=== PATIENT | female | born 1955 | race Caucasian/White ===

== ENCOUNTER 2017-07-19 04:01 | Emergency (ER) | payer SELFPAY ==
[2017-07-19] MEDS ORDERED: ASPIRIN 81 MG TABLET, CHEWABLE PO ONE (04:20)
[2017-07-19] MEDS ORDERED: MAG HYDROX/AL HYDROX/SIMETH SUSP 30 ML UDCUP PO ONE (04:39)
[2017-07-19] MEDS ORDERED: LIDOCAINE 2% VISCOUS SOLN 20 ML UDCUP PO ONE (04:39)
[2017-07-19] MEDS ORDERED: METOCLOPRAMIDE HCL ORAL SOLN 10 MG/10 ML UDCUP PO ONE (04:39)
--- NOTE | 2017-07-19 04:39 | ER Document Report ---
ED Medical Screen (RME) - General Chief Complaint: Chest Pain Stated Complaint: CHEST PAIN Time Seen by Provider: 07/19/17 04:35 - HPI Notes: 07/19/17 04:36 Patient coming in for evaluation of chest pain woke her up around 230 this morning states similar to GERD in the past pain in center of the chest denies fevers chills nausea vomiting diarrhea. Patient states now just has a funny feeling in her chest. EKG was reviewed by myself no acute changes patient's physical exam showed normal heart rate normal lung sounds. Patient looks to be no obvious distress upon discussed quick review. - Related Data Allergies/Adverse Reactions: No Known Allergies Allergy (Verified 02/02/12 09:07) Past Medical History Past Surgical History: Reports: Hx Hysterectomy - Immunizations Hx Diphtheria, Pertussis, Tetanus Vaccination: Yes Review of Systems - Review of Systems Cardiovascular: Chest pain Physical Exam - Vital signs Vitals: Temp Pulse Resp BP Pulse Ox 98.2 F 66 18 157/60 H 98 07/19/17 04:12 07/19/17 04:12 07/19/17 04:12 07/19/17 04:12 07/19/17 04:12 - Cardiovascular Rhythm: Regular Heart sounds: Normal auscultation Course - Re-evaluation Re-evalutation: 07/19/17 04:39 We will give GI cocktail. - Vital Signs Vital signs: Temp Pulse Resp BP Pulse Ox 98.2 F 66 18 157/60 H 98 07/19/17 04:12 07/19/17 04:12 07/19/17 04:12 07/19/17 04:12 07/19/17 04:12
[2017-07-19 04:59] LABS: ABSOLUTE BASOPHILS # (AUTO) 0.1 10^3/uL (0.0-0.2); ABSOLUTE EOSINOPHILS # (AUTO) 0.4 10^3/uL (0.0-0.6); ABSOLUTE MONOCYTES (AUTO) 0.9 10^3/uL (0.1-1.4); BASOPHILS % (AUTO) 0.6 % (0-2); EOSINOPHILS % (AUTO) 4.6 % (0-6); HEMATOCRIT 40.8 % (36.0-47.0); HEMOGLOBIN 14.2 g/dL (12.0-15.5); HGB HCT DIFFERENCE 1.8; LYMPHOCYTES % (AUTO) 21.1 % (13-45); MEAN CORPUSCULAR HEMOGLOBIN 31.2 pg (27.0-33.4); MEAN CORPUSCULAR HGB CONC 34.9 g/dL (32.0-36.0); MEAN CORPUSCULAR VOLUME 90 fl (80-97); MONOCYTES % (AUTO) 9.9 % (3-13); RED BLOOD COUNT 4.55 10^6/uL (3.72-5.28); RED CELL DISTRIBUTION WIDTH 12.9 % (11.5-14.0); SEGMENTED NEUTROPHILS % (AUTO) 63.8 % (42-78); WHITE BLOOD COUNT 9.4 10^3/uL (4.0-10.5)
[2017-07-19 05:07] LABS: ALANINE AMINOTRANSFERASE 35 U/L (9-52); ALBUMIN 4.1 g/dL (3.5-5.0); ALKALINE PHOSPHATASE 76 U/L (38-126); ANION GAP 17 (5-19); ASPARTATE AMINO TRANSFERASE 20 U/L (14-36); BILIRUBIN,DIRECT 0.2 mg/dL (0.0-0.4); BILIRUBIN,TOTAL 0.3 mg/dL (0.2-1.3); BLOOD UREA NITROGEN 12 mg/dL (7-20); CALCIUM 9.4 mg/dL (8.4-10.2); CARBON DIOXIDE 22 mmol/L (22-30); CHLORIDE 108 mmol/L (98-107); CREATINE KINASE 70 U/L (30-135); CREATININE RESULT 0.67 mg/dL (0.52-1.25); GLUCOSE 159 mg/dL (75-110); POTASSIUM 3.7 mmol/L (3.6-5.0); SODIUM 146.7 mmol/L (137-145); TOTAL PROTEIN 6.7 g/dL (6.3-8.2)
--- NOTE | 2017-07-19 05:14 | RADIOLOGY REPORT (SQ) ---
EXAM DESCRIPTION: CHEST SINGLE VIEW CLINICAL HISTORY: 62 years, Female, CP COMPARISON: None. NUMBER OF VIEWS: One TECHNIQUE: Frontal LIMITATIONS: None. FINDINGS: Moderate lung volumes. Clear lung parenchyma. Normal cardiac silhouette. Atherosclerosis. IMPRESSION: No acute cardiopulmonary findings. 2011 [employer]- All Rights Reserved
[2017-07-19 05:19] LABS: CREATINE KINASE MB 0.77 ng/mL (<4.55)
[2017-07-19 05:25] LABS: TROPONIN I < 0.012 ng/mL
--- NOTE | 2017-07-19 06:33 | ER Document Report ---
ED General - General Chief Complaint: Chest Pain Stated Complaint: CHEST PAIN Time Seen by Provider: 07/19/17 04:35 - HPI Notes: 62 years old female presents today with epigastric pain since 230 early this morning. She ate late last night around 930 with cheese and nuts. The pain was burning in sensation with no radiation, not associated with any numbness tingling sensation. Was nauseous but did not vomit. No precordial pain or palpitation. Denies any diaphoresis. Denies any history of coronary artery disease except her mother of heart attack at 67. She is on cholesterol medication. Denies any constitutional symptoms - Related Data Allergies/Adverse Reactions: No Known Allergies Allergy (Verified 02/02/12 09:07) Past Medical History - General Information source: Patient - Social History Smoking Status: Never Smoker Chew tobacco use (# tins/day): No Frequency of alcohol use: None Drug Abuse: None Family History: CAD Patient has suicidal ideation: No Patient has homicidal ideation: No Renal/ Medical History: Denies: Hx Peritoneal Dialysis Past Surgical History: Reports: Hx Hysterectomy - Immunizations Hx Diphtheria, Pertussis, Tetanus Vaccination: Yes Hx Pneumococcal Vaccination: 08/12/00 Review of Systems - Review of Systems Constitutional: No symptoms reported, See HPI. denies: Chills, Diaphoresis, Fever, Malaise, Weakness, Other, Weight gain, Weight loss, Recent illness EENT: No symptoms reported. denies: See HPI, Eye pain, Eye discharge, Blurred vision, Tearing, Double vision, Ear pain, Ear discharge, Nose pain, Nose congestion, Nose discharge, Sinus pressure, Sinus discharge, Throat pain, Difficulty swallowing, Throat swelling, Mouth pain, Mouth swelling, Dental problem, Vertigo, Other Cardiovascular: See HPI, Chest pain. denies: No symptoms reported, Palpitations , Heart racing, Orthopnea, Dyspnea, Syncope, Dizziness, Lightheaded, Edema, Other, Paroxysmal Nocturnal Dysp Respiratory: No symptoms reported. denies: See HPI, Cough, Hurts to breathe, Hemoptysis, Short of breath, Sputum, Stridor, Wheezing, Other Gastrointestinal: No symptoms reported. denies: See HPI, Abdomen distended, Abdominal pain, Diarrhea, Nausea, Vomiting, Constipation, Blood streaked bowels , Poor appetite, Poor fluid intake, Blood in vomit, Black stools, Rectal bleeding, Last bowel movement, Fecal incontinence, Other Genitourinary: denies: No symptoms reported, See HPI, Burning, Dysuria, Discharge, Frequency, Flank pain, Hematuria, Incontinence, Pain, Urgency, Retention, Other Neurological/Psychological: denies: No symptoms reported, See HPI, Confusion, Dementia, Depression, Hallucinations, Anxiety, Homicidal ideation, Sensory change, Weakness, Gait changes, Loss of power, Paralysis, Seizure, Lost consciousness, Headaches, Speech impairment, Numbness, Suicidal ideation, Tingling, Tremor, Other Physical Exam - Vital signs Vitals: Temp Pulse Resp BP Pulse Ox 98.2 F 66 18 157/60 H 98 07/19/17 04:12 07/19/17 04:12 07/19/17 04:12 07/19/17 04:12 07/19/17 04:12 - Notes Notes: ral exam: Alert oriented 3, appears well, not in any acute distress, body habitus------. HEENT: Normocephalic atraumatic pupils were equal reactive to light extraocular muscles were within normal range. Neck is supple no JVD no lymphadenopathy. Oral mucosa-not erythematous, no lesions noted no tonsillar enlargement. Chest no lesions, nontraumatic, nontender. No deformity Lungs: Bilaterally clear breath sounds no rales or wheezing, no adventitial sounds, no dullness on percussion. Cardiovascular system: Normal S1-S2 no murmurs, no gallop. Regular rhythm. Noperipheral edema over the lower extremities. Gastrointestinal: Normal appearance, positive bowel sounds in all 4 quadrants, no Hepatosplenomegaly, no obvious masses, no obvious abdominal bruit. No horseshoe dullness. Inguinal region: No masses or obvious inguinal hernia noted Genitourinary: Rectal exam: Nervous system: Alert oriented 3, no cranial nerve weakness, no focal neurological deficit noted. Sensation is intact over the lower extremities for pain and touch. Reflexes are 2+ over both patella. Upper extremities: No trauma as noted, normal range of motion for both shoulders, elbows and wrist. Lower extremity: No traumas or deformities noted, normal range of motion for flexion extension abduction abduction of both hip joints, Normal flexion and extension of knee joint. Normal range of motion for plantarflexion dorsiflexion and eversion inversion for both ankles. Skin: No erythema, no edema, no obvious lesions noted Course - Re-evaluation Re-evalutation: 07/19/17 06:31 She was given GI cocktail, the pain was completely relieved. Currently very comfortable - Vital Signs Vital signs: Temp Pulse Resp BP Pulse Ox 98.2 F 66 17 120/59 L 97 07/19/17 04:12 07/19/17 04:12 07/19/17 06:02 07/19/17 06:02 07/19/17 06:02 - Laboratory Result Diagrams: 07/19/17 04:43 07/19/17 04:43 Laboratory results interpreted by me: 07/19/17 04:43 Sodium 146.7 H Chloride 108 H Glucose 159 H 07/19/17 06:32 Troponin is less than 0.012 - Diagnostic Test Radiology results interpreted by me: 07/19/17 06:33 Diagnostic report text EXAM DESCRIPTION: CHEST SINGLE VIEW CLINICAL HISTORY: 62 years, Female, CP COMPARISON: None. NUMBER OF VIEWS: One TECHNIQUE: Frontal LIMITATIONS: None. FINDINGS: Moderate lung volumes. Clear lung parenchyma. Normal cardiac silhouette. Atherosclerosis. IMPRESSION: No acute cardiopulmonary findings. 2010 [employer]- All Rights Reserved Dictated by: ILIANA KELLEY MD [id number] Discharge - Discharge Clinical Impression: GERD with esophagitis Condition: Fair Disposition: HOME, SELF-CARE Instructions: Esophagitis (OM) Referrals: CARDIOLOGY [Provider Group] - Follow up as needed
[2017-07-19 07:04] VITALS: BP 119/89
--- NOTE | 2017-07-19 11:20 | EKG REPORT ---
SEVERITY:- ABNORMAL ECG - SINUS RHYTHM INCOMPLETE RIGHT BUNDLE BRANCH BLOCK : Confirmed by: Isabel Renteria 19-Jul-2017 11:20:09
== END 2017-07-19 07:03 | disposition home or self-care (01) ==
LOC: ER 04:01
DX: K21.0 Gastro-esophageal reflux disease with esophagitis (principal); R07.9 Chest pain, unspecified; R10.13 Epigastric pain; R11.0 Nausea; Z90.710 Acquired absence of both cervix and uterus
CPT/HCPCS: 93005; 99285; 36415; 82553; 82550; 85025; 80053; 84484; 71010; 93010; J3490